=== PATIENT | male | born 1960 | race Caucasian/White ===

== ENCOUNTER → 2024-03-03 11:23 | Outpatient (REF) | payer OTHER, SELFPAY | LOC: REG 11:23 | PROVIDERS: FAMILY PHYSICIAN Family Medicine | DX: M17.11 Unilateral primary osteoarthritis, right knee (principal) | CPT/HCPCS: 36415; 87070 ==

== ENCOUNTER → 2024-03-04 09:16 | Outpatient (REF) | payer OTHER, SELFPAY | LOC: REG 09:16 | PROVIDERS: FAMILY PHYSICIAN Family Medicine | DX: M17.11 Unilateral primary osteoarthritis, right knee (principal) | CPT/HCPCS: 36415 ==

== ENCOUNTER 2025-02-16 06:32 | Day surgery (SDC) | payer OTHER, SELFPAY | END 2025-02-16 08:30 | disposition home or self-care (01) | LOC: GI 06:32 | PROVIDERS: ATTENDING PHYSICIAN Specialist; FAMILY PHYSICIAN Family Medicine | DX: Z12.11 Encounter for screening for malignant neoplasm of colon (principal); Z83.719 Family history of colon polyps, unspecified | CPT/HCPCS: G0105 ==